=== PATIENT | female | born 1985 | race American Indian/Alaskan Native ===

== ENCOUNTER 2017-11-01 12:24 | Observation (INO) | payer OTHER ==
[~2017-11-01] VITALS: Ht 165.1 cm; Wt 130.0 kg
[~2017-11-01 12:24] MED LIST: ACETAMINOPHEN-1 EAC1 PO; CYCLOBENZAPRINE10 MG PO; CYCLOBENZAPRINE5 MG PO; DAYPRO600 MG PO; IBUPROFEN600 MG PO; IBUPROFEN800 MG PO; LIDODERM700 MG TOP; MEDROL4 M1 PO; MOBIC7.5 MG PO; MOTRIN IB200 MG PO; NAPROXEN500 MG PO; NORCO 5-325 TA1 EACH PO; OMEPRAZOLE20 M1 PO; PERCOCET 5-3251 EACH PO; PRILOSEC20 MG PO; ROBAXIN-750750 MG PO
[2017-11-01] MEDS ORDERED: VITAMIN D1000 UNI1 PO (12:32)
[2017-11-01] MEDS ORDERED: PRENATAL 19 CH1 EAC1 PO (12:32)
--- NOTE | 2017-11-02 13:46 | CONS ---
[facility] [address] [place], [place] [address] Signed DATE OF CONSULTATION: 11/02/2017 HISTORY OF PRESENT ILLNESS: The patient is a 32-year-old 4, para 3, with LMP of 08/05/2017, who presented to the emergency department for back pain. She was apparently at [employer] and walked into the gas station and on her way out of the building, felt as if her legs became jello- like, got weak and could not walk or move, grabbed onto something and slid down to the ground. She was subsequently transported by emergency services to [facility]. The emergency department treated her for pain. She did not have any loss of bowel or bladder control and no numbness, but the pain radiates down both from her lower back to down her legs. She was treated with Toradol, Decadron, and ativan with some relief of pain. Percocet overnight in the hospital apparently relieved her pain, but she was still not able to ambulate. She did use a bed cheney, not very successfully. Reports that she has had less actual urge to void, this is not normal for her and otherwise she continues to have severe lower back pain. PAST MEDICAL HISTORY: Significant for gastroesophageal reflux disease, which is treated with omeprazole. She had chickenpox at age 6. PAST SURGICAL HISTORY: Cholecystectomy in 2010, history of transfusion in 2001, hemorrhage. OB HISTORY: She is a 4, para 3. She has had three term deliveries, 2002 40-week spontaneous vaginal delivery of a male , 7 pounds 8 ounces at [place] with hemorrhage and transfusion. In 06/2008, a 39-week female, spontaneous vaginal delivery, 8 pounds 7 ounces at [facility]. In 02/2011, 40-week male, spontaneous vaginal delivery, 9 pounds 1 ounce at [facility]. SOCIAL HISTORY: She is a former smoker. Denies any alcohol or drug use. ALLERGIES: She is allergic to penicillin, unknown reaction. MEDICATIONS: She is presently on vitamins, omeprazole 20 mg daily, and vitamin D 1000 units daily. FAMILY HISTORY: Electronically Signed By: ARMANI LIMON MD 11/02/17 1346 PATIENT NAME: JACQUI BURCH CONSULTATION DATE OF : 81 REPORT #: [id number] PHYSICIAN: ARMANI LIMON MD PCP: CECILIA STRICKLAND MD REPORT IS CONFIDENTIAL AND NOT TO BE RELEASED WITHOUT AUTHORIZATION [facility] [address] [place], [place] [address] Signed Maternal grandmother, paternal grandmother, and father all have diabetes. Hypertension in mother. Cancer in maternal grandmother, paternal grandmother as well. Genetic history is significant for advanced maternal age. PHYSICAL EXAMINATION: GENERAL: The patient is a morbidly obese female. She appears comfortable in bed. She is able to move about in bed . She is in no acute distress. SKIN: Dry and well-hydrated. HEENT: Pupils are equal, round, and reactive to light. Extraocular muscles are intact. Oral mucosa is moist. She does have poor dentition. NECK: Supple and symmetric. No adenopathy. LUNGS: Clear to auscultation bilaterally. CARDIOVASCULAR: Regular rate and rhythm. No murmur. ABDOMEN: Obese, gravid, soft, nontender, and nondistended. No guarding. BACK: Does not appear to have any CVA tenderness, but right side seems worse than the left over her lumbar area midline going toward the sacrum. MUSCULOSKELETAL: She has good strength and movement. Sensation appears intact. EXTREMITIES: Have no edema. Good pulses. No phlebitis. NEUROLOGIC: She is alert and oriented and moving all extremities well, but she is painful over her lower back. LABORATORY DATA: The patient's white count on admission was 13.1, hemoglobin 13, hematocrit 38.6, and platelets 350. Her band neutrophils were 8%, neutrophils were 83, lymphocytes 8, and monocytes 1. Electrolytes looked to be normal and a glucose of 97. The cath UA was done, did have 2+ squames and some hematuria. Current white count is 14.6, hemoglobin 11.7, hematocrit 33.7, and platelets 332, again with a positive bands. Neutrophils are high at 83. IMAGING: Bedside ultrasound was performed last night, consistent with 10 week intrauterine , live with cardiac activity. IMPRESSION AND PLAN: In the emergency room, the patient was unchanged after a course of Ativan, Toradol, Tylenol, and Decadron. She was placed on Percocet overnight, did well for pain control with that. This morning, we have changed her over to Flexeril for her pain and Percocet for breakthrough and we will have physical therapy involved and see what radiologic studies are further needed to evaluate this sudden onset of acute back pain in a chronic setting. Electronically Signed By: ARMANI LIMON MD 11/02/17 1346 PATIENT NAME: JACQUI BURCH CONSULTATION DATE OF : 81 REPORT #: [id number] PHYSICIAN: ARMANI LIMON MD PCP: CECILIA STRICKLAND MD REPORT IS CONFIDENTIAL AND NOT TO BE RELEASED WITHOUT AUTHORIZATION [place] [id number] [place], [place] [address] Signed MD LIZ Umanzor/ALEENA /[id number] Copies: ~ Electronically Signed By: ARMANI LIMON MD 11/02/17 1346 PATIENT NAME: JACQUI BURCH CONSULTATION DATE OF : 81 REPORT #: [id number] PHYSICIAN: ARMANI LIMON MD PCP: CECILIA STRICKLAND MD REPORT IS CONFIDENTIAL AND NOT TO BE RELEASED WITHOUT AUTHORIZATION
== END 2017-11-02 21:40 | disposition home or self-care (01) ==
LOC: ED 12:24 → FBC 12:25
PROVIDERS: ADMIT Obstetrics & Gynecology
DX: O99.89 Other specified diseases and conditions complicating pregnancy, childbirth and the puerperium (principal); M54.9 Dorsalgia, unspecified; G89.29 Other chronic pain; M54.30 Sciatica, unspecified side; O99.211 Obesity complicating pregnancy, first trimester; E66.01 Morbid (severe) obesity due to excess calories; O99.62 Diseases of the digestive system complicating childbirth; K21.9 Gastro-esophageal reflux disease without esophagitis; Z79.899 Other long term (current) drug therapy; Z87.891 Personal history of nicotine dependence; Z3A.10 10 weeks gestation of pregnancy
CPT/HCPCS: 36415; 51701; 72148; 80048; 80053; 81001; 83690; 84702; 85025; 96372; 97110; 97161; 99285; G0378; G8978; G8979; J1100; J1885

== ENCOUNTER 2017-12-18 21:35 | Emergency (ER) | payer OTHER ==
[~2017-12-18] VITALS: Ht 165.1 cm; Wt 129.3 kg
[~2017-12-18 21:35] MED LIST changes: +PRENATAL 19 CH1 EAC1 PO; +VITAMIN D1000 UNI1 PO
== END 2017-12-18 23:15 | disposition home or self-care (01) ==
LOC: ED 21:35
DX: O9A.212 Injury, poisoning and certain other consequences of external causes complicating pregnancy, second trimester (principal); S50.01XA Contusion of right elbow, initial encounter; Z88.0 Allergy status to penicillin; Z79.899 Other long term (current) drug therapy; Z87.891 Personal history of nicotine dependence; Z3A.18 18 weeks gestation of pregnancy; W10.9XXA Fall (on) (from) unspecified stairs and steps, initial encounter
CPT/HCPCS: 73080; 99283

== ENCOUNTER 2018-01-31 12:40 | Emergency (ER) | payer OTHER ==
[~2018-01-31] VITALS: Ht 165.1 cm; Wt 122.5 kg
[2018-01-31] MEDS ORDERED: PERCOCET 5-3251 EACH PO (13:51)
[2018-01-31] MEDS ORDERED: MACROBID 100 M100 MG PO (14:35)
== END 2018-01-31 14:56 | disposition home or self-care (01) ==
LOC: ED 12:40
DX: O99.89 Other specified diseases and conditions complicating pregnancy, childbirth and the puerperium (principal); M51.16 Intervertebral disc disorders with radiculopathy, lumbar region; M48.061 Spinal stenosis, lumbar region without neurogenic claudication; Z88.0 Allergy status to penicillin; Z79.899 Other long term (current) drug therapy; Z3A.24 24 weeks gestation of pregnancy
CPT/HCPCS: 81001; 96372; 99283; J0696; J1100; J1885

== ENCOUNTER 2018-05-01 14:45 | Emergency (ER) | payer OTHER ==
[~2018-05-01] VITALS: Ht 165.1 cm; Wt 129.3 kg
[~2018-05-01 14:45] MED LIST changes: +MACROBID 100 M100 MG PO
--- OUTSIDE RECORDS SUMMARY | 2018-05-01 14:50 | XMS ---
PreManage Notification: JACQUI BURCH Security Tenter Frame Operator Events No recent Security Events currently on file CRITERIA MET - Group Notification - [facility] - Has Care Guidelines CARE PROVIDERS There are no care providers on record at this time. Guidelines Source: [facility] Guidelines Date: 02/23/2017 Care Coordination: ENCOURAGE PATIENT TO USE PCP FOR FOLLOW UP AND NON-EMERGENT PROBLEMS. GIVE PATIENT OWNER/PHOTOGRAPHERRADIO RECORDER INFORMATION FOR HELP OR QUESTIONS. ANITA PEREZ, STONE GRADERCIGAR [facility] [phone] E.DBubba VISIT COUNT (12 MO.) 5 [facility]. TOTAL 5 NOTE: Visits indicate total known visits. ED/UCC VISIT TRACKING (12 MO.) 05/01/2018 14:46 [facility] [place] TYPE: Emergency COMPLAINT: - SOB,COUGH 01/31/2018 12:41 [facility] TYPE: Emergency COMPLAINT: - BACK PAIN/ NON INJURY DIAGNOSES: - 24 weeks gestation of - SPINAL STENOSIS, LUMBAR REGION WITHOUT NEUROGENIC - Intervertebral disc disorders with radiculopathy, lumbar region - Other specified diseases and conditions complicating , childbirth and the puerperium - Low back pain - Allergy status to penicillin - Spinal stenosis, lumbar region without neurogenic claudication - Other shelter (current) drug therapy 01/20/2018 00:00 [facility] [place] TYPE: Emergency COMPLAINT: - UPPER ABD PAIN,NAUSEA 12/18/2017 21:35 [facility] TYPE: Emergency COMPLAINT: - FALL DIAGNOSES: - Other specified diseases and conditions complicating , childbirth and the puerperium - Contusion of right elbow, initial encounter - Fall (on) (from) unspecified stairs and steps, initial encounter - Other welfare interviewer (current) drug therapy - Injury, poisoning and certain other consequences of external causes complicating , second trimester - Allergy status to penicillin - Personal history of nicotine dependence - 18 weeks gestation of 11/01/2017 12:24 [facility] TYPE: Emergency COMPLAINT: - BACK PAIN/11 WEEKS PREG INPATIENT VISIT TRACKING (12 MO.) No inpatient visits to display in this time frame [email or web address]
[2018-05-01] MEDS ORDERED: VENTOLIN HFA18 GM INH (18:34)
== END 2018-05-01 19:05 | disposition home or self-care (01) ==
LOC: ED 14:45
DX: O99.513 Diseases of the respiratory system complicating pregnancy, third trimester (principal); J40 Bronchitis, not specified as acute or chronic; Z88.0 Allergy status to penicillin; Z79.899 Other long term (current) drug therapy; Z3A.36 36 weeks gestation of pregnancy
CPT/HCPCS: 59025; 71046; 99212; 99283

== ENCOUNTER 2018-05-10 09:10 | Inpatient (IN) | payer OTHER ==
[~2018-05-10] VITALS: Ht 165.1 cm; Wt 134.0 kg
--- NOTE | ~2018-05-10 | OR ---
[facility] [address] [place], [place] [address] Draft DATE OF OPERATION: 05/17/2018 SURGEON: Vidhya Contreras MD MARINE ERECTOR: Win Soto DO. PREOPERATIVE DIAGNOSES: Term , morbid obesity, macrosomia. POSTOPERATIVE DIAGNOSES: Term , morbid obesity, macrosomia, delivered. PROCEDURE: Primary section with low segment transverse uterine incision. ANESTHESIA: Spinal. ESTIMATED BLOOD LOSS: 1000 mL. DRAINS: Fernandes catheter. INDICATIONS AND FINDINGS: The patient is a 33-year-old female admitted at 39 weeks for primary section. She has a history of morbid obesity with excess weight gain. She also has a very large baby. She was counseled and the decision was made to proceed with a primary . At the time of delivery, she was delivered of a little boy from the LOT position via lower segment transverse uterine incision with Apgars of 9 and 9 and weight of 10 pounds 14 ounces. There was a nuchal cord x1, which was loose. The uterus, tubes, ovaries, and placenta appeared normal. DESCRIPTION OF PROCEDURE: The patient was prepped and draped in the supine position. A Pfannenstiel skin incision was made. This was done fairly high because of her pannus as well as intertrigo in the lower aspects of the abdomen. The incision was carried down through the fascia. The incision was extended laterally. The inferior and superior fascial flaps were then created. The muscles were bluntly divided and the peritoneum opened bluntly. The PATIENT NAME: JACQUI BURCH OPERATIVE REPORT DATE OF : 81 REPORT #: [id number] PHYSICIAN: VIDHYA CONTRERAS MD PCP: CECILIA STRICKLAND MD REPORT IS CONFIDENTIAL AND NOT TO BE RELEASED WITHOUT AUTHORIZATION [facility] [address] [place], [place] [address] Draft Thai retractor was then placed. Following this, the uterine wall was then scored and entered at the upper aspect of the peritoneal reflection. The baby was delivered as above findings and handed off to the pediatric staff in attendance. The uterus was explored after removal of the placenta. There was quite a bit of remaining membrane, which required separate removal. The edges of the incision were then identified and the uterus was closed in 2 layers using #0 Monocryl. The first layer was a running locking stitch, the 2nd was a vertical imbricating stitch. Additional [id number] were required near the left side for control of bleeding. The abdomen was then copiously irrigated, inspected, and the area appeared hemostatic. A single suture was placed bringing the bladder flap up over the incision on the patient's left side just because of the difficulty with prior hemostasis. Following this, the retractor was removed and the peritoneum identified. An ACell graft was laid over the lower segment of the uterus to aid in healing. The peritoneum was then closed with a running suture of 3-0 Vicryl. The muscles were brought together with interrupted sutures of 0 Vicryl. Bleeding points were controlled with cautery. ACell powder was sprinkled over the muscles to aid in healing. The fascia was then closed from each angle to the midline with a running suture of 0 Vicryl. The subcutaneous tissue was irrigated and bleeding points controlled with cautery. The deep space was closed with interrupted sutures of 3-0 Vicryl. The skin was closed with linda. All sponge and needle counts were correct. She tolerated the procedure well and was taken to the recovery room in good condition. MD CRYSTAL Ruiz/ALEENA /[id number] cc: [facility] Win Soto DO Copies: [facility] WIN SOTO DO ~ PATIENT NAME: JACQUI BURCH OPERATIVE REPORT DATE OF : 81 REPORT #: [id number] PHYSICIAN: VIDHYA CONTRERAS MD PCP: CECILIA STRICKLAND MD REPORT IS CONFIDENTIAL AND NOT TO BE RELEASED WITHOUT AUTHORIZATION
[~2018-05-10 09:10] MED LIST changes: +VENTOLIN HFA18 GM INH
[2018-05-17] MEDS ORDERED: IRON325 M1 PO (05:56)
--- NOTE | 2018-05-17 09:01 | NUR ---
05/17/18 0901 Vinita Dean 3971 PT REPORTS 6/10 PAIN DURING FUNDAL CHECK. PT RESP EVEN AND UNLABORED ON ROOM AIR. PT REPORTS NAUSEA. ALCOHOL PREP PAD OPEN AND PT SMELLING IT, EMESIS BAG NEXT TO PT. PT ENCOURGED TO DEEP BREATH AND COUGH. 0856 PAIN MEDICATION GIVEN. VSS. BADY TO CHEST.
--- NOTE | 2018-05-18 07:48 | PR ---
[facility] [address] [facility] [place], [place] [address] Signed PP Progress Notes Datetime Report Generated by CPN: 05/18/2018 07:48 SUBJECTIVE: [id number] Pain: Within normal limits Pain Comments: Dizzy when up yesterday but better today Nausea/Vomiting: Denies Vital Signs: [id number] Vital Signs: Reviewed; Within Normal Limits EXAM: [id number] Cardiovascular: Normal Respiratory: Normal Abdomen/Uterus: Abnormal Lochia: Normal Vulva/Perineum: Not Done Breasts: Not Done CVA Tenderness: Not Done Extremities: Normal Incision: Normal Progress: Abnormal Exam Comments: Abdomen with active BS. Fundus firm, NT @ U. H/H 6.8/21.3, WBC 9.9, plat 353k IMPRESSION/PLAN/PROCEDURES: [id number] Impression: Normal progression Other Impression: significant anemia Other Plans: Tx 1 Unit PRBCs, increase ambulation Progress Notes: Doing well overall but significant anemia and some dizziness initially. I do feel she would benefit from a transfusion of 1 Unit at this time. Signing Physician: Vidhya Contreras MD Copies: ~ *Electronically Signed* 05/18/18 0748 VIDHYA CONTRERAS MD PATIENT NAME: JACQUI BURCH PROGRESS NOTE DATE OF : 81 PHYSICIAN: VIDHYA CONTRERAS MD RPT #: [id number] REPORT IS CONFIDENTIAL AND NOT TO BE RELEASED WITHOUT AUTHORIZATION
--- NOTE | 2018-05-19 09:01 | PR ---
[facility] [address] [facility] [place], [place] [address] Signed PP Progress Notes Datetime Report Generated by CPN: 05/19/2018 09:01 SUBJECTIVE: [id number] Pain: Within normal limits Pain Comments: tolerating ambulation Nausea/Vomiting: Denies Flatus: Yes Vital Signs: [id number] Vital Signs: Reviewed; Within Normal Limits EXAM: [id number] Cardiovascular: Not Done Respiratory: Not Done Abdomen/Uterus: Abnormal Lochia: Normal Vulva/Perineum: Not Done Breasts: Not Done CVA Tenderness: Not Done Extremities: Normal Incision: Normal Progress: Abnormal Exam Comments: Abdomen with positive BS. Fundus firm, NT @ U. H/H 7.4/22.9, WBC 10.4, plat 383k (after 1 unit PRBCs) IMPRESSION/PLAN/PROCEDURES: [id number] Impression: Normal progression Other Impression: Anemia Plan: Discharge Other Plans: IV feraheme and then D/C Procedures: Transfusion Other Procedures: IV feraheme Progress Notes: Doing well overall though still quite iron deficient despite her taking po PNV and iron. I feel she would benefit from a dose of IV iron prior to D/C. Signing Physician: Vidhya Contreras MD Copies: ~ *Electronically Signed* 05/19/18 0901 VIDHYA CONTRERAS MD PATIENT NAME: ALYSON LAIRDDARYARoc Morales PROGRESS NOTE DATE OF : 81 PHYSICIAN: VIDHYA CONTRERAS MD RPT #: [id number] REPORT IS CONFIDENTIAL AND NOT TO BE RELEASED WITHOUT AUTHORIZATION
== END 2018-05-19 10:55 | disposition home or self-care (01) | DRG 787 ==
LOC: FBC 05-17 04:49
PROVIDERS: ADMIT Obstetrics & Gynecology
PROC: 10D00Z1 Extraction of Products of Conception, Low, Open Approach (ICD-10-PCS; principal; 2018-05-17 06:45)
DX: O36.63X0 Maternal care for excessive fetal growth, third trimester, not applicable or unspecified (principal); Z68.42 Body mass index [BMI] 45.0-49.9, adult; Z3A.39 39 weeks gestation of pregnancy; Z37.0 Single live birth; O69.81X0 Labor and delivery complicated by cord around neck, without compression, not applicable or unspecified; O99.02 Anemia complicating childbirth; D50.9 Iron deficiency anemia, unspecified; Z88.0 Allergy status to penicillin; O99.214 Obesity complicating childbirth; E66.01 Morbid (severe) obesity due to excess calories; Z87.891 Personal history of nicotine dependence; O32.2XX0 Maternal care for transverse and oblique lie, not applicable or unspecified; O26.03 Excessive weight gain in pregnancy, third trimester; O99.89 Other specified diseases and conditions complicating pregnancy, childbirth and the puerperium; M51.16 Intervertebral disc disorders with radiculopathy, lumbar region; E55.9 Vitamin D deficiency, unspecified
CPT/HCPCS: 01961; 36415; 85027; 86850; 86900; 86901; 86920; C1763; J0690; J1644; J2274; J2405; J2590; J3010; J7120; Q0138

== ENCOUNTER 2019-01-08 13:42 | Emergency (ER) | payer OTHER ==
[~2019-01-08] VITALS: Ht 165.1 cm; Wt 128.4 kg
--- OUTSIDE RECORDS SUMMARY | ~2019-01-08 | XMS | Encounter Summary ---
Demographics + + + | Address | [address] | | | [place] [address] | + + + | Home Phone | | + + + | Preferred Language | Unknown | + + + | Marital Status | Unknown | + + + | Samaritan Affiliation | Unknown | + + + | Race | Unknown | + + + | Ethnic Group | Unknown | + + + Author + + + | Author | [facility] | + + + | Organization | [facility] | + + + | Address | Unknown | + + + | Phone | Unavailable | + + + Support + + +---------+ + | Name | Relationship | Address | Phone | + + +---------+ + | Curtis Jorge | ECON | Unknown | | + + +---------+ + Care Team Providers + +------+ + | Care Batch Records Clerk Name | Role | Phone | + +------+ + | Sharon Valles PA-C | PCP | | + +------+ + Reason for Visit +--------+ + | Reason | Comments | +--------+ + | Other | Chart notes | +--------+ + Encounter Details +--------+ + + + + | Date | Type | Department | Care Team | Description | +--------+ + + + + | 01/04/ | Telephone | [facility] | Eva Lai | Other (Chart notes) | | 2019 | | [facility] | [address] | | | | | [address] | [address] | | | | | [place], [place] | [place] [address] | | | | | [address] | [phone] | | | | | [phone] | | | +--------+ + + + + Social History + +-------+ +--------+------+ | Tobacco Use | Types | Packs/Day | Years | Date | | | | | Used | | + +-------+ +--------+------+ | Current Every Day | | | | | | Smoker | | | | | + +-------+ +--------+------+ + +---+---+---+ | Smokeless Tobacco: | | | | | Never Used | | | | + +---+---+---+ + + +---------+ + | Alcohol Use | Drinks/We | oz/Week | Comments | | | ek | | | + + +---------+ + | No | | | | + + +---------+ + + + + | Sex Assigned at | Date Recorded | | | | + + + | Not on file | | + + + as of this encounter Plan of Treatment +--------+ + + + + | Date | Type | Specialty | Care Team | Description | +--------+ + + + + | 02/01/ | Appointment | [facility] | o[facility] Rdz | | | 2018 | | | MD Ryan [address] | | | | | | [address] | | | | | | [place] [address] | | | | | | [phone] | | | | | | | | +--------+ + + + + | 02/11/ | Office | [facility] | Eva Lai | | | 2019 | Visit | | [address] | | | | | | [address] | | | | | | [place] [address] | | | | | | [phone] | | | | | | | | +--------+ + + + + as of this encounter Visit Diagnoses Not on filein this encounter"
--- OUTSIDE RECORDS SUMMARY | ~2019-01-08 | XMS | Encounter Summary ---
Demographics + + + | Address | [address] | | | [place] [address] | + + + | Home Phone | | + + + | Preferred Language | Unknown | + + + | Marital Status | Unknown | + + + | Episcopalian Affiliation | Unknown | + + + | Race | Unknown | + + + | Ethnic Group | Unknown | + + + Author + + + | Author | [facility] | + + + | Organization | [facility] | + + + | Address | Unknown | + + + | Phone | Unavailable | + + + Support + + +---------+ + | Name | Relationship | Address | Phone | + + +---------+ + | Curtis Jorge | ECON | Unknown | | + + +---------+ + Care Team Providers + +------+ + | Care Folder Machine Name | Role | Phone | + +------+ + | Sharon Valles PA-C | PCP | | + +------+ + Reason for Visit + + + | Reason | Comments | + + + | Procedure | would like a call back | + + + Encounter Details +--------+ + + + + | Date | Type | Department | Care Team | Description | +--------+ + + + + | 01/04/ | Telephone | [facility] | [facility] | Procedure (would | | 2019 | | [facility] | MD [address] | like a call back) | | | | [address] | [address] | | | | | [place], [place] | [place] [address] | | | | | [address] | [phone] | | | | | [phone] | | | +--------+ + + + [...] | 02/01/ | Appointment | [facility] | Moo Rdz | | | 2019 | | | MD [address] | | | | | | [address] | | | | | | [place] [address] | | | | | | [phone] | | | | | | | | +--------+ + + + + | 02/11/ | Office | [facility]ology | Eva Lai | | | 2019 | Visit | | [address] | | | | | | [address] | | | | | | [place] [address] | | | | | | [phone] | | | | | | | | +--------+ + + + + as of this encounter Visit Diagnoses Not on filein this encounter"
--- OUTSIDE RECORDS SUMMARY | ~2019-01-08 | XMS | Encounter Summary ---
Demographics + + + | Address | [address] | | | [place] [address] | + + + | Home Phone | | + + + | Preferred Language | Unknown | + + + | Marital Status | Unknown | + + + | Sikhism Affiliation | Unknown | + + + | Race | Unknown | + + + | Ethnic Group | Unknown | + + + Author + + + | Author | [facility] | + + + | Organization | [facility] | + + + | Address | Unknown | + + + | Phone | Unavailable | + + + Support + + +---------+ + | Name | Relationship | Address | Phone | + + +---------+ + | Curtis Jorge | ECON | Unknown | | + + +---------+ + Care Team Providers + +------+ + | Care Iron Guardrail Installer Name | Role | Phone | + +------+ + | Sharon Valles PA-C | PCP | | + +------+ + Encounter Details +--------+ + + + + | Date | Type | Department | Care Team | Description | +--------+ + + + + | 11/09/ | Documentati | [facility] | Juan Francisco Valera MD | | | 2019 | on Only | [facility] | [address] | | | | | [address] | [place] | | | | | [place] | [address] | | | | | [address] | | | | | | [phone] | | | +--------+ + + + [...] Dol[facility] | Moo Rdz | | | 2018 | | | MD [address] | | | | | | [address] | | | | | | [place] [address] | | | | | | [phone] | | | | | | | | +--------+ + + + + | 02/11/ | Office | Dolorology | Eva Lai | | | 2018 | Visit | | [address] | | | | | | [address] | | | | | | [place] [address] | | | | | | [phone] | | | | | | | | +--------+ + + + + as of this encounter Visit Diagnoses Not on filein this encounter"
--- OUTSIDE RECORDS SUMMARY | ~2019-01-08 | XMS | Encounter Summary ---
Demographics + + + | Address | [address] | | | [place] [address] | + + + | Home Phone | | + + + | Preferred Language | Unknown | + + + | Marital Status | Unknown | + + + | Confucianism Affiliation | Unknown | + + + | Race | Unknown | + + + | Ethnic Group | Unknown | + + + Author + + + | Author | [facility] | + + + | Organization | [facility] [employer] | + + + | Address | Unknown | + + + | Phone | Unavailable | + + + Support + + +---------+ + | Name | Relationship | Address | Phone | + + +---------+ + | Curtis Jorge | ECON | Unknown | | + + +---------+ + Care Team Providers + +------+ + | Care Electrician Deck Name | Role | Phone | + +------+ + | Sharon Valles PA-C | PCP | | + +------+ + Reason for Visit Consultation (Routine) +--------+ + + + + + | Status | Reason | Specialty | Diagnoses / | Referred By | Referred To | | | | | Procedures | Contact | Contact | +--------+ + + + + + | Closed | Specialty | Pain | Diagnoses | Sujatha, | Kendell, | | | Services | Management - | Lumbar | NEIL Gillespie | Moo Davis, | | | Required | Anesthesiolog | radiculopath | [address] | MD [address] | | | | y / | y | Ceci Camacho | Ceci | | | | Dolorology | Degeneration | [address] | | | | | of | [place], [place] | [place] | | | | | intervertebr | [address] | [address] Phone: | | | | | al disc of | Phone: | [phone] | | | | | lumbar | [phone] | Fax: | | | | | region | Fax: | [phone] | | | | | Herniated | [phone] | | | | | | lumbar | | | | | | | intervertebr | | | | | | | al disc | | | +--------+ + + + + + Encounter Details +--------+---------+ + + + | Date | Type | Department | Care Team | Description | +--------+---------+ + + + | 12/27/ | Office | [facility] | Eva Lai | Lumbar radiculitis | | 2019 | Visit | [facility] | NEIL Kevin [address] | (Primary Dx); DDD | | | | [address] | [address] | (degenerative disc | | | | [address] [place], [place] | [place] [address] | disease), lumbar | | | | [address] | [phone] | | | | | [phone] | | | +--------+---------+ + + + Social History + +-------+ [...] + + + as of this encounter Last Filed Vital Signs + + + + | Vital Sign | Reading | Time Taken | + + + + | Blood Pressure | 117/80 | 12/27/2018 10:01 AM PDT | + + + + | Pulse | 85 | 12/27/2018 10:01 AM PDT | + + + + | Temperature | - | - | + + + + | Respiratory Rate | 17 | 12/27/2018 10:01 AM PDT | + + + + | Oxygen Saturation | 95% | 12/27/2018 10:01 AM PDT | + + + + | Inhaled Oxygen | - | - | | Concentration | | | + + + + | Weight | 129.3 kg (285 lb) | 12/27/2018 10:01 AM PDT | + + + + | Height | 165.1 cm (5' 5") | 12/27/2018 10:01 AM PDT | + + + + | Body Mass Index | 47.43 | 12/27/2018 10:01 AM PDT | + + + + in this encounter Instructions Patient Instructions - Eva Lai ARNP - 12/27/2018 10:00 AM PDT-Return to i [facility] for Left L4, L5 TFESI -Return to clinic for follow up post procedure. Thank you, Maximo Alvarez this encounter Progress Notes Eva Lai ARNP - 12/27/2018 10:00 AM PDTFormatting of this note may be differ ent from the original. Subjective: Chief Complaint: Left sided radicular low back pain HPI Patient ID: Natalia Amador is a pleasant 33 y.o. female accompanied by her husba nd and 7-month-old baby presents today for left-sided low back pain that has an insidious on set about 5 years ago. She denies any traumaor injuries. She states that her pain origin ates from her lower spine and radiates, laterally down her thigh and occasionally goes past her knee. She reports that her pain is worse in the morning and that it takes her a few amee martina to get up out of the bed, she has difficulty going from the sitting to the standing posi tion, going upstairs, stepping into the tub shower, bending over and tying her shoes. Leonard deras reports having to use a shopping cart at the grocery store to lean on for support. She h as tried and failed over 6 weeks of NSAID use, Had been prescribed tramadol in the past but did not like how it made her feel And stopped taking it. She has also tried Hot and col d therapy with limited short time relief, and bedrest has not helped. Since her pain began it has increased. She can typically sit for 15-30 minutes, stand fo r 45-60 minutes, and walk for 15-30 minutes. At its worst her pain as a 10 out of 10 , at its least it is a 5 out of 10, I is usually an 8 out of 10, Suddenly it is a 7 ot of 10. Her pain is worse in the morning on arising and in the evening. Her pain is always prese nt and always the same intensity. Scribes her pain as tight and pulling, She has tinglin g pins and needles. Coughing sneezing lying down and physical activity all make her pain wo rse. Thing makes her pain feel better, Her pain interrupts her sleep 3 times per night. she has no history of surgeries or injections for back cheney. Review of Systems Musculoskeletal: Positive for back pain. Social History Social History Marital status: Unknown Spouse name: N/A Number of children: N/A Years of education: N/A Occupational History Not on file. Social History Main Topics Smoking status: Current Every Day Smoker Smokeless tobacco: Never Used Alcohol use No Drug use: Yes Types: Marijuana Sexual activity: Not on file Other Topics Concern Not on file Social History Narrative No narrative on file Past Surgical History Procedure Laterality Date SECTION 05/2018 GALLBLADDER SURGERY 2009 History reviewed. No pertinent past medical history. Patient Active Problem List Diagnosis Lumbar radiculopathy Degeneration of intervertebral disc of lumbar region Herniated lumbar intervertebral disc No current outpatient prescriptions on file. Allergies Allergen Reactions Penicillins Other (See Comments) "unknown" Objective: BP 117/80 (BP Location: Left upper arm, Patient Position: Sitting) | Pulse 85 | Resp 17 | Ht 1.651 m (5' 5") | Wt 129.3 kg (285 lb) | SpO2 95% | BMI 47.43 kg/m Cardiovascular: Normal rate,regular rhythm, and normal heart sounds. Respiratory: Effort normal, breath sounds normal. Physical Exam Musculoskeletal: Back: Lumbar: Axium mechanical lumbar pain upon exam paraspinous tenderness present at L4-L5. Motor Strength Right knee flexion 5/5 Left knee flexion 5-/5 Right knee extension 5/5 Left knee extension 5-/5 Right hip flexion 5/5 Left hip flexion 5-/5 Right hip abduction 5/5 Left hip abduction 5-/5 Right hip adduction 5/5 Left hip adduction 5-/5 Dorsiflexion 5/5 Plantar flexion 5/5 Straight leg positive for low back pain bilaterally Faberes positive on left side for low back pain. Negative on right. Sacroiliac joint tenderness to palpation on the left, negative on the right Greater Trochanteric Bursa negative Station/Gait Upright, non-shuffle, atalgic gait Heel to toe tandem gait with difficulty Walk on toes - unable to perform. Walk on heels -normal Neurologic Exam Sensory: Sensory deficits in the left as compared to the right in the L4-L5 dermatomal dist ributions. . Patellar deep tendon reflexes +2bilaterally, Achiilles absent Ortho Exam IMAGING: No results found. Assessment and Plan: Natalia Amador is a pleasant 33 y.o. female accompanied by her and 7-mon th-old baby presents today for left-sided low back pain that has an insidious onset about 5 years ago. She denies any traumaor injuries. She states that her pain originates from hr mid low back pain and radiates, laterally down he thigh and occasionally goes past her knee . She reports that her pain is worse in the morning and that it takes her a few minutes to g et up out of the bed, she has difficulty going from the sitting to the standing position, go ing upstairs, stepping into the tub shower, bending over and tying her shoes. She report s having to use a shopping cart at the grocery store to lean on for support. She has tried and failed over 6 weeks of NSAID use, Had been prescribed tramadol in the past but did not like how it made her feel And stopped taking it. She has also tried Hot and cold therap y with limited short time relief, and bedrest has not helped. I discusse in detail with the patient using the spine model, her MRI images, and her sympt oms to correlate with the procedures we offer. All of her questions were answered. Plan, alternatives, risks and potential benefits of the procedure were explained to the patient in great detail. The patient understands that there is no guarantee they will get pain relief with this procedure. They also understand that if they do get pain relief that there is no way to know how long it will last. They also understand there is a risk to the procedure i tself which includes but are not limited to infection, abscess, hematoma, nerve damage, inc reased pain, and side effects from the medications themselves. The patient wishes to procee d. The patient has tried and failed than 6 weeks of NSAID use, Hot and cold therapy with mini mal short-term relief, And bedrest. Given her symptoms and her MRI Indicating degenerat ve disc changes at L4-L5, There is a broad-based disc bulge which is concentric to the left which causes mild central canal stenosis alsoeffaces the left side compressing the L5 nerve root In conjunction with her radicular pain radiating on the left lateral thigh The plan is for a left L4 and L5 TFESI. Plan, alternatives, risks and potential benefits of the pro cedure were explained to the patient in great detail. The patient understands that there is no guarantee they will get pain relief with this procedure. They also understand that if t hey do get pain relief that there is no way to know how long it will last. They also unders tand there is a risk to the procedure itself which includes but are not limited to infection , abscess, hematoma, nerve damage, increased pain, and side effects from the medications th emselves. The patient wishes to proceed. The patient will follow-up with me in the clinic after the procedure. The patient was under the impression she would receive a steroid injection today and since that was not the case she asked for a prescription to help alleviate her nerve pain, Wrote her a trial prescription for gabapentin-Patient verbalized that she was not . No diagnosis found. No orders of the defined types were placed in this encounter. No orders of the defined types were placed in this encounter. The following portions of the patient's histories were reviewed and updated as appropriate: Allergies, current medications, past family history, past medical history, past surgical hi story, past surgical history and problem list. These were also stored in the patient's [place] t. NEIL Alvarez has created this entry using [employer] and [employer] macros. The entry has been reviewed and there may still exist sound alike word errors. in this encounter Plan of Treatment +--------+ + + + + | Date | Type | Specialty | Care Team | Description | +--------+ + + + + | 02/01/ | Appointment | Dolorology | Moo Rdz | | | 2018 | | | MD Ryan [address] | | | | | | [address] | | | | | | [place] [address] | | | | | | [phone] | | | | | | | | +--------+ + + + + | 02/11/ | Office | Dolorology | Renny Laielle | | | 2018 | Visit | | NEIL Kevin [address] | | | | | | [address] | | | | | | [place] [address] | | | | | | [phone] | | | | | | | | +--------+ + + + + as of this encounter Visit Diagnoses + + | Diagnosis | + + | Lumbar radiculitis - Primary | + + | Thoracic or lumbosacral neuritis or radiculitis, unspecified | + + | DDD (degenerative disc disease), lumbar | + + | Degeneration of lumbar or lumbosacral intervertebral disc | + +
--- OUTSIDE RECORDS SUMMARY | ~2019-01-08 | XMS | Encounter Summary ---
Demographics + + + | Address | [address] | | | [place] [address] | + + + | Home Phone | | + + + | Preferred Language | Unknown | + + + | Marital Status | Unknown | + + + | Adventism Affiliation | Unknown | + + + | Race | Unknown | + + + | Ethnic Group | Unknown | + + + Author + + + | Author | [facility] [employer] | + + + | Organization | [facility] [employer] [facility] | + + + | Address | Unknown | + + + | Phone | Unavailable | + + + Support + + +---------+ + | Name | Relationship | Address | Phone | + + +---------+ + | Curtis Jorge | ECON | Unknown | | + + +---------+ + Care Team Providers + +------+ + | Care Driver/Guide Name | Role | Phone | + +------+ + | Sharon Valles PA-C | PCP | | + +------+ + Encounter Details +--------+ + + + + | Date | Type | Department | Care Team | Description | +--------+ + + + + | 12/23/ | Documentati | [facility] | Carlie Fall, | | | 2019 | on Only | [facility] | MEAT DEPARTMENT MANAGER | | | | | [address] | | | | | | [place] | | | | | | [address] | | | | | | [phone] | | | +--------+ + + + [...] + + + as of this encounter Progress Notes Carlie Fall CMA - 12/23/2018 2:20 PM [facility] in this enc ounter Plan of Treatment +--------+ + + + + | Date | Type | Specialty | Care Team | Description | +--------+ + + + + | 02/01/ | Appointment | Dolorology | Moo Rdz | | | 2018 | | | MD Ryan [address] | | | | | | [address] | | | | | | [place] [address] | | | | | | [phone] | | | | | | | | +--------+ + + + + | 02/11/ | Office | Dolorology | Eva Lai | | | 2018 | Visit | | NEIL Kevin [address] | | | | | | [address] | | | | | | [place] [address] | | | | | | [phone] | | | | | | | | +--------+ + + + + as of this encounter Visit Diagnoses Not on filein this encounter"
--- OUTSIDE RECORDS SUMMARY | ~2019-01-08 | XMS | Encounter Summary ---
Demographics + + + | Address | [address] | | | [place] [address] | + + + | Home Phone | | + + + | Preferred Language | Unknown | + + + | Marital Status | Unknown | + + + | Mandaeism Affiliation | Unknown | + + + | Race | Unknown | + + + | Ethnic Group | Unknown | + + + Author + + + | Author | [facility] [employer] | + + + | Organization | [facility] [employer] [facility] | + + + | Address | Unknown | + + + | Phone | Unavailable | + + + Support + + +---------+ + | Name | Relationship | Address | Phone | + + +---------+ + | Curtis Jorge | ECON | Unknown | | + + +---------+ + Care Team Providers + +------+ + | Care Continuity Manager Name | Role | Phone | + +------+ + | Sharon Valles PA-C | PCP | | + +------+ + Reason for Visit + + + | Reason | Comments | + + + | Establish Care | Referral | + + + Encounter Details +--------+ + + + + | Date | Type | Department | Care Team | Description | +--------+ + + + + | 10/15/ | Telephone | [facility] | Moo Rdz | Establish Care | | 2019 | | [facility] | MD [address] | (Referral) | | | | [address] | [address] | | | | | [address] [place], [place] | [place] [address] | | | | | [address] | [phone] | | | | | [phone] | | | +--------+ + + + [...] [address] | | | | | | [facility] [place] [place] [address] | | | | | | [phone] | | | | | | | | +--------+ + + + + | 02/11/ | Office | Dolorology | Eva Lai | | | 2019 | Visit | | NEIL [address] | | | | | | [address] | | | | | | [facility] [place] [place] [address] | | | | | | [phone] | | | | | | | | +--------+ + + + + as of this encounter Visit Diagnoses Not on filein this encounter"
--- OUTSIDE RECORDS SUMMARY | ~2019-01-08 | XMS | Clinical Summary ---
Demographics + + + | Address | [address] | | | [place] [address] | + + + | Home Phone | | + + + | Preferred Language | Unknown | + + + | Marital Status | Unknown | + + + | Sikh Affiliation | Unknown | + + + | Race | Unknown | + + + | Ethnic Group | Unknown | + + + Author + + + | Author | [facility] [employer] | + + + | Organization | [facility] [employer] [facility] | + + + | Address | Unknown | + + + | Phone | Unavailable | + + + Support + + +---------+ + | Name | Relationship | Address | Phone | + + +---------+ + | Curtis Jorge | ECON | Unknown | | + + +---------+ + Care Team Providers + +------+ + | Care Billboard Poster Helper Name | Role | Phone | + +------+ + | Sharon Valles PA-C | PP | | + +------+ + Allergies + + + + + + | Active Allergy | Reactions | Severity | Noted | Comments | | | | | Date | | + + + + + + | Penicillins | Other (See Comments) | Medium | 08/20/19 | "unknown" | | | | | 19 | | + + + + + + Current Medications + + +---------+---------+------+------+-------+ | Prescription | Sig. | Disp. | Refills | Star | End | Statu | | | | | | t | Date | s | | | | | | Date | | | + + +---------+---------+------+------+-------+ | gabapentin | TAKE ONE TABLET BY | 90 | 11 | 12/15 | | Activ | | (NEURONTIN) 300 MG | MOUTH AT BEDTIME FOR | capsule | | 3/20 | | e | | capsule | ONE WEEK AND THEN | | | 19 | | | | | INCREASE TO TWO | | | | | | | | TABLETS BY MOUTH AT | | | | | | | | BEDTIME. | | | | | | + + +---------+---------+------+------+-------+ Active Problems + + + | Problem | Noted Date | + + + | Lumbar radiculopathy | 08/20/2018 | + + + | Degeneration of intervertebral disc of lumbar region | 08/20/2018 | + + + | Herniated lumbar intervertebral disc | 08/20/2018 | + + + Encounters +--------+ + + + + | Date | Type | Specialty | Care Team | Description | +--------+ + + + + | 01/04/ | Telephone | | Moo Rdz | Procedure (would | | 2018 | | | MD Ryan | like a call back) | +--------+ + + + + | 01/04/ | Telephone | | Eva Lai | Other (Chart notes) | | 2018 | | | NEIL Kevin | | +--------+ + + + + | 12/27/ | Office | | Eva Lai | Lumbar radiculitis | 2018 | Visit | | NE[address] Kevin | (Primary Dx); DDD | | | | | | (degenerative disc | | | | | | disease), lumbar | +--------+ + + + + | 12/23/ | Documentati | | Carlie Fall, | | | 2018 | on Only | | HELPDESK ADMINISTRATOR | | +--------+ + + + + | 11/09/ | Documentati | | Juan Francisco Valera MD | | | 2018 | on Only | | | | +--------+ + + + + | 10/15/ | Telephone | | Moo Rdz | Establish Care | | 2019 | | | MD Ryan | (Referral) | +--------+ + + + + from Last 3 Months Social History + +-------+ +--------+------+ | Tobacco [...] on file | | + + + Last Filed Vital Signs + + + [...] AM PDT | + + + + Plan of Treatment +--------+ + + + + | Date | Type | Specialty | Care Team | Description | +--------+ + + + + | 02/01/ | Appointment | | Moo Rdz | | | 2018 | | | MD Ryan [address] | | | | | | [address] | | | | | | [place] [address] | | | | | | [phone] | | | | | | | | +--------+ + + + + | 02/11/ | Office | | Eva Lai | | | 2018 | Visit | | [address] | | | | | | [address] | | | | | | [place] [address] | | | | | | [phone] | | | | | | | | +--------+ + + + + + + + + + | Health Maintenance | Due Date | Last Done | Comments | + + + + + | Vaccine: | | | | | Dtap/Tdap/Td (1 - | 2 | | | | Tdap) | | | | + + + + + | Vaccine: | | | | | Pneumococcal 19-64 | 2 | | | | (PPSV23 only) Medium | | | | | Risk (1 of 1 - | | | | | PPSV23) | | | | + + + + + | Cervical Cancer | | | | | Screening (Pap) | 3 | | | + + + + + | Vaccine: Influenza | | | | | (Season Ended) | 9 | | | + + + + + Results Not on filefrom Last 3 Months Insurance + +--------+ +------+-------+---------+ | Payer | Benefi | Subscriber | Type | Phone | Address | | | t Plan | ID | | | | | | / | | | | | | | Group | | | | | + +--------+ +------+-------+---------+ | [employer] | YELLOW | [id number] | | | | | PLANS | [place] | | | | | + +--------+ +------+-------+---------+ + +--------+ +--------+ + + | Guarantor Name | Accoun | Relation to | Date | Phone | Billing Address | | | t Type | Patient | of | | | | | | | | | | + +--------+ +--------+ + + | JACQUI SHIELDS | Person | Self | [birth year] | Home: | [address] | | [place] | al/Rudy | | 1984 | [phone] [address] [place], | | | sami | | | [phone] | [place] [phone] | + +--------+ +--------+ + +
[~2019-01-08 13:42] MED LIST changes: +IRON325 M1 PO; +KEFLEX500 MG PO
--- OUTSIDE RECORDS SUMMARY | 2019-01-08 13:46 | XMS ---
PreManage Notification: JACQUI BURCH Security House Painting Instructor Events No recent Security Events currently on file CRITERIA MET - Group Notification - [facility] - Has Care Guidelines CARE PROVIDERS DEEPTI AGUILAR Physician Director Data Management: Surgical 05/05/2018-Current PHONE: Unknown BLU CERDA Obstetrics \T\ Gynecology 05/05/2018-Current PHONE: Unknown Guidelines Source: [facility] Guidelines Date: 02/23/2017 Care Coordination: ENCOURAGE PATIENT TO USE PCP FOR FOLLOW UP AND NON-EMERGENT PROBLEMS. GIVE PATIENT PRESTRESSED CONCRETE LABORERGUEST HISTORY CLERK INFORMATION FOR HELP OR QUESTIONS. ANITA PEREZ RN GRADES 9 THROUGH 12 TEACHER [facility] [phone] Idania VISIT COUNT (12 MO.) [address] [facility] TOTAL 5 NOTE: Visits indicate total known visits. ED/UCC VISIT TRACKING (12 MO.) 01/08/2019 13:43 [facility] TYPE: Emergency COMPLAINT: - RIGHT ANKLE PAIN 06/03/2018 15:59 [facility] TYPE: Emergency COMPLAINT: - MEDICAL CLEARANCE DIAGNOSES: - Encounter for other general examination - Major depressive disorder, single episode, unspecified - Allergy status to penicillin - Personal history of nicotine dependence - Other group home (current) drug therapy 05/01/2018 14:46 [facility] TYPE: Emergency COMPLAINT: - SOB,COUGH DIAGNOSES: - Allergy status to penicillin - Cough - Bronchitis, not specified as acute or chronic - 36 weeks gestation of - Other group home (current) drug therapy - Diseases of the respiratory system complicating , third trimester 01/31/2018 12:41 [facility] TYPE: Emergency [...] lumbar region without neurogenic claudication - Other as400 consultant (current) drug therapy 01/20/2018 00:00 [facility] TYPE: Emergency COMPLAINT: - UPPER ABD PAIN,NAUSEA INPATIENT VISIT TRACKING (12 MO.) No inpatient visits to display in this time frame [email or web address]
== END 2019-01-08 14:15 | disposition home or self-care (01) ==
LOC: ED 13:42
DX: M25.571 Pain in right ankle and joints of right foot (principal)

== ENCOUNTER 2019-11-08 18:37 | Emergency (ER) | payer OTHER ==
[~2019-11-08] VITALS: Ht 165.1 cm; Wt 128.4 kg
[2019-11-08] MEDS ORDERED: ULTRAM50 MG PO (19:49)
[2019-11-08] MEDS ORDERED: NAPROXEN500 MG PO (19:49)
== END 2019-11-08 20:00 | disposition home or self-care (01) ==
LOC: ED 18:37
DX: M72.2 Plantar fascial fibromatosis (principal); K21.9 Gastro-esophageal reflux disease without esophagitis; Z88.0 Allergy status to penicillin
CPT/HCPCS: 73630; 99283-25

== ENCOUNTER 2020-01-31 15:20 | Emergency (ER) | payer OTHER ==
[~2020-01-31] VITALS: Ht 165.1 cm; Wt 128.4 kg
[~2020-01-31 15:20] MED LIST changes: +ULTRAM50 MG PO
[2020-01-31] MEDS ORDERED: PRILOSEC10 M1 PO (15:34)
== END 2020-01-31 16:45 | disposition home or self-care (01) ==
LOC: ED 15:20
DX: R51 Headache (principal); K21.9 Gastro-esophageal reflux disease without esophagitis; Z20.828 Contact with and (suspected) exposure to other viral communicable diseases; Z87.891 Personal history of nicotine dependence; Z88.0 Allergy status to penicillin; Z79.899 Other long term (current) drug therapy
CPT/HCPCS: 99284; A9270; C9803; U0002

== ENCOUNTER 2020-05-12 10:30 | Emergency (ER) | payer OTHER ==
[~2020-05-12] VITALS: Ht 165.1 cm; Wt 124.7 kg
[~2020-05-12 10:30] MED LIST changes: +PRILOSEC10 M1 PO
--- NOTE | 2020-05-12 12:00 | NUR ---
covid sample collected and sent to [facility], no complications
== END 2020-05-12 11:04 | disposition home or self-care (01) ==
LOC: ED 10:30
DX: J06.9 Acute upper respiratory infection, unspecified (principal); Z20.828 Contact with and (suspected) exposure to other viral communicable diseases; K21.9 Gastro-esophageal reflux disease without esophagitis; Z88.0 Allergy status to penicillin; Z79.899 Other long term (current) drug therapy
CPT/HCPCS: 99283; C9803

== ENCOUNTER 2020-07-04 15:03 | Emergency (ER) | payer OTHER ==
[~2020-07-04] VITALS: Ht 165.1 cm; Wt 122.0 kg
== END 2020-07-04 15:24 | disposition home or self-care (01) ==
LOC: ED 15:03
DX: U07.1 COVID-19 (principal)

== ENCOUNTER 2020-07-08 16:07 | Emergency (ER) | payer OTHER ==
[~2020-07-08] VITALS: Ht 165.1 cm; Wt 122.0 kg
--- NOTE | 2020-07-08 23:59 | EKG ---
[facility] [address] [facility] [place], [place] [address] Signed Normal sinus rhythm Nonspecific T wave abnormality Abnormal ECG No previous ECGs available Confirmed by PADMA BAZAN MD ([id number]) on 07/08/2020 11:59:06 PM Electronically Signed By: PADMA BAZAN MD 07/08/20 2359 PATIENT NAME: DARYA SHIELDSRoc TEJADA Electrocardiogram DATE OF : 81 PHYSICIAN: PADMA BAZAN MD REPORT #: [id number] REPORT IS CONFIDENTIAL AND NOT TO BE RELEASED WITHOUT AUTHORIZATION
== END 2020-07-08 21:01 | disposition home or self-care (01) ==
LOC: ED 16:07
DX: U07.1 COVID-19 (principal); E86.0 Dehydration; K21.9 Gastro-esophageal reflux disease without esophagitis; Z87.891 Personal history of nicotine dependence; Z88.0 Allergy status to penicillin; Z79.899 Other long term (current) drug therapy
CPT/HCPCS: 71045; 80053; 83690; 83735; 84484; 85025; 93005; 93010; 96374; 99284-25; J1885; J7030

== ENCOUNTER 2020-11-10 10:31 | Emergency (ER) | payer OTHER ==
[~2020-11-10] VITALS: Ht 165.1 cm; Wt 129.3 kg
== END 2020-11-10 11:25 | disposition home or self-care (01) ==
LOC: ED 10:31
DX: S60.222A Contusion of left hand, initial encounter (principal); W22.8XXA Striking against or struck by other objects, initial encounter; Z88.0 Allergy status to penicillin
CPT/HCPCS: 73130; 99283-25

== ENCOUNTER 2021-03-02 18:04 | Emergency (ER) | payer OTHER ==
[~2021-03-02] VITALS: Ht 165.1 cm; Wt 129.3 kg
[2021-03-02] MEDS ORDERED: PRILOSEC2.5 MG PO (18:17)
[2021-03-02] MEDS ORDERED: DICLOFENAC SODI75 MG PO (19:16)
== END 2021-03-02 19:35 | disposition home or self-care (01) ==
LOC: ED 18:04
DX: S50.02XA Contusion of left elbow, initial encounter (principal); S90.02XA Contusion of left ankle, initial encounter; S60.212A Contusion of left wrist, initial encounter; V87.8XXA Person injured in other specified noncollision transport accidents involving motor vehicle (traffic), initial encounter; K21.9 Gastro-esophageal reflux disease without esophagitis; Z88.0 Allergy status to penicillin; Z79.899 Other long term (current) drug therapy
CPT/HCPCS: 73080; 73110; 73610; 99283-25

== ENCOUNTER 2022-11-13 09:55 | Emergency (ER) | payer OTHER ==
[~2022-11-13] VITALS: Ht 165.1 cm; Wt 119.8 kg
[~2022-11-13 09:55] MED LIST changes: +DICLOFENAC SODI75 MG PO; +PRILOSEC2.5 MG PO
[2022-11-13] MEDS ORDERED: IBU600 MG PO (12:16)
== END 2022-11-13 12:48 | disposition home or self-care (01) ==
LOC: ED 09:55
DX: S53.401A Unspecified sprain of right elbow, initial encounter (principal); W01.10XA Fall on same level from slipping, tripping and stumbling with subsequent striking against unspecified object, initial encounter; K21.9 Gastro-esophageal reflux disease without esophagitis; Z88.0 Allergy status to penicillin
CPT/HCPCS: 73080; 99283-25; A9270

== ENCOUNTER 2024-08-31 12:14 | Emergency (ER) | payer OTHER ==
[~2024-08-31] VITALS: Ht 165.1 cm; Wt 117.5 kg
[~2024-08-31 12:14] MED LIST changes: +IBU600 MG PO
[2024-08-31 13:35] VITALS: BP 103/60
== END 2024-08-31 13:35 | disposition home or self-care (01) ==
LOC: ED 12:14
DX: S63.501A Unspecified sprain of right wrist, initial encounter (principal); W10.9XXA Fall (on) (from) unspecified stairs and steps, initial encounter; Z88.0 Allergy status to penicillin
CPT/HCPCS: 73110; 99283

== ENCOUNTER 2025-03-19 00:24 | Observation (INO) | payer OTHER ==
[2025-03-19] MEDS ORDERED: NIFEdipine XL 30 MG TAB PO STA (03:14)
[2025-03-19] MEDS ORDERED: LACTATED RINGER'S 1,000 ML IV ONE (03:15)
[2025-03-19] MEDS ORDERED: NIFEdipine XL 30 MG TAB PO ONE (06:15)
[2025-03-19] MEDS ORDERED: LACTATED RINGER'S 1,000 ML IV SCH (06:15)
[2025-03-19 06:33] VITALS: BP 98/52
--- NOTE | 2025-03-19 13:18 | PR ---
[facility] [address] [facility] [place], [place] [address] Signed AP Progress Notes Datetime Report Generated by CPN: 03/19/2025 13:18 Chief Complaint: Fall EGA: 29.4 PHYSICAL EXAM: [id number] General: Normal HEENT: Normal Neurologic: Normal Thyroid: Normal Cardiovascular: Normal Respiratory: Not Done Breast: Not Done Back: Normal Abdomen: Normal Genitourinary Exam: Not Done Extremities: Normal DTRs: Not Done Impression: IUP @ 29w4d Fall w/ contractions Plan: Pt seen and evaluated. Doing well. No bleeding or loss of fluids. CTXs much less intense. No concerns. Discussed risk of abruption and indication for 24 hr observation. Pt agreeable. Will reevaluate this evening; sooner if needed. VITAL SIGNS: [id number] Vital Signs: Reviewed; Within Normal Limits EXAM: [id number] Dilatation: 0.5 Effacement: 50 Station: -3 MEMBRANES: [id number] FETUS A: [id number] FHR Baseline: 135 Variability: Moderate 6-25bpm Accelerations: 15X15 Deceleration: None FHR Category: Category I Gestation by US: 29.4 FETUS B: [id number] PROGRESS NOTES: [id number] Signing Physician: Win Soto DO *Electronically Signed* 03/19/25 1318 WIN SOTO (NOVA) DO PATIENT NAME: JACQUI SHIELDS PROGRESS NOTE DATE OF : 81 PHYSICIAN: WIN SOTO (JD) DO RPT #: [id number] REPORT IS CONFIDENTIAL AND NOT TO BE RELEASED WITHOUT AUTHORIZATION [facility] [address] [place], [place] [address] Signed Copies: ~ *Electronically Signed* 03/19/25 1318 WIN SOTO) DO PATIENT NAME: JACQUI SHIELDS PROGRESS NOTE DATE OF : 81 PHYSICIAN: WIN SOTO) DO RPT #: [id number] REPORT IS CONFIDENTIAL AND NOT TO BE RELEASED WITHOUT AUTHORIZATION
--- NOTE | 2025-03-19 23:21 | PR ---
[facility] [address] [place], [place] [address] Signed AP Progress Notes Datetime Report Generated by CPN: 03/19/2025 23:21 Chief Complaint: Fall EGA: 29.4 PHYSICAL EXAM: [id number] General: Normal HEENT: Normal Neurologic: Normal Thyroid: Normal Cardiovascular: Normal Respiratory: Not Done Breast: Not Done Back: Normal Abdomen: Normal Genitourinary Exam: Not Done Extremities: Normal DTRs: Not Done Physical Exam Comments: Abdomen gravid, soft, non-tender Impression: IUP @ 29w4d Fall w/ contractions No evidence of abruption or labor Plan: Doing well. No concerns. Denies painful contractions. Reviewed d/c instructions and indications for return. F/U for regularly scheduled OB visit. Call if any other episodes of fainting. All questions answered. VITAL SIGNS: [id number] Vital Signs: Reviewed; Within Normal Limits EXAM: [id number] Dilatation: 0.5 Effacement: 50 Station: -3 MEMBRANES: [id number] FETUS A: [id number] FHR Baseline: 135 Variability: Moderate 6-25bpm Accelerations: 15X15 Deceleration: None FHR Category: Category I Gestation by US: 29.4 FETUS B: [id number] *Electronically Signed* 03/19/25 Tom1 WIN SOTO) DO PATIENT NAME: JAQCUI SHIELDS PROGRESS NOTE DATE OF : 81 PHYSICIAN: WIN SOTO (JD) DO RPT #: [id number] REPORT IS CONFIDENTIAL AND NOT TO BE RELEASED WITHOUT AUTHORIZATION [facility] [address] [place], [place] [address] Signed PROGRESS NOTES: [id number] Signing Physician: Win Soto DO Copies: ~ *Electronically Signed* 03/19/25 2321 WIN SOTO) DO PATIENT NAME: JACQUI SHIELDS PROGRESS NOTE DATE OF : 81 PHYSICIAN: WIN SOTO (JD) DO RPT #: [id number] REPORT IS CONFIDENTIAL AND NOT TO BE RELEASED WITHOUT AUTHORIZATION
== END 2025-03-20 00:38 | disposition home or self-care (01) ==
LOC: FBCO 00:24 → FBC 06:09
PROVIDERS: ADMIT Obstetrics & Gynecology; ATTEND Obstetrics & Gynecology
DX: O99.891 Other specified diseases and conditions complicating pregnancy (principal); R55 Syncope and collapse; O47.03 False labor before 37 completed weeks of gestation, third trimester; Z3A.29 29 weeks gestation of pregnancy; Z88.0 Allergy status to penicillin; W18.30XA Fall on same level, unspecified, initial encounter
CPT/HCPCS: G0378; J7121

== ENCOUNTER 2025-05-20 03:55 | Inpatient (IN) | payer OTHER ==
[~2025-05-20] VITALS: Ht 167.1 cm; Wt 120.7 kg
--- NOTE | ~2025-05-20 | OR ---
[facility] [address] [facility] [place] [address] Draft DATE OF OPERATION: 05/20/2025 SURGEON: Win Soto DO PREOPERATIVE DIAGNOSES: 1. Term . 2. History of prior section. 3. Obesity. 4. Anemia. 5. Desires bilateral salpingectomy. POSTOPERATIVE DIAGNOSES: 1. Term . 2. History of prior section. 3. Obesity. 4. Anemia. 5. Desires bilateral salpingectomy. PROCEDURE PERFORMED: 1. Repeat low transverse section. 2. Bilateral salpingectomy. STAMP MOUNTER: POLICE CRIME SCENE TECHNICIAN. ANESTHESIA: Spinal with postoperative TAP block. QUANTITATIVE BLOOD LOSS: 771 mL. DRAINS: Fernandes to gravity. SPECIMENS: Bilateral fallopian tubes and cord blood. COMPLICATIONS: None. PATIENT NAME: JACQUI SHIELDS OPERATIVE REPORT DATE OF : 81 REPORT #: [id number] PHYSICIAN: WIN SOTO (NOVA) PCP: [facility] REPORT IS CONFIDENTIAL AND NOT TO BE RELEASED WITHOUT AUTHORIZATION [address], [place] [address] Draft FINDINGS: Delivery of viable male , 9 pounds, 5 ounces with Apgars of 8 and 9, born in the FELICE position via low transverse uterine incision. Clear fluid and no nuchal cord noted. There were some filmy adhesions of the omentum to the uterus. Otherwise, normal uterus, tubes, and ovaries. INDICATIONS: Ms. Shields is a very pleasant 40-year-old multiparous female, who presented after spontaneous rupture of membranes. was complicated by history of prior , obesity, anemia, and the patient desirous of bilateral salpingectomy. Risks, benefits, and alternatives were discussed in detail with the patient. State forms and ethics committee approval for salpingectomy had been previously completed. The patient understands and wished to proceed with the procedure. DESCRIPTION OF PROCEDURE: The patient was taken to the OR. Time-out was performed to confirm correct patient and correct procedure. Spinal anesthesia was adequately established. The patient was prepped and draped in the supine position with a bump under her right hip. She received Ancef 3 g and azithromycin 500 mg IV preoperatively. Once spinal anesthetic was noted to be adequately established, a Pfannenstiel skin incision was made through the prior incision and carried down to the fascia. The fascia was nicked in the midline and fascial incision was extended bilaterally using curved Macias scissors. Fascia was grasped with Maurilio's, elevated, and the underlying rectus dissected off bluntly and sharply. The rectus was divided in the midline and the peritoneum was entered bluntly. Peritoneal incision was extended cephalad and caudad using sharp and blunt dissection. Very filmy adhesions of the omentum were noted to the anterior uterine wall and these were easily taken down with the Bovie electrocautery. The lower uterine segment was identified and noted to be normal in appearance. Thai self-retractor was placed and hysterotomy was performed using a surgical scalpel. The hysterotomy was extended bilaterally using blunt dissection and the amnion was ruptured for clear fluid. The surgeon's hand was placed in the uterine cavity. The vertex delivered into the abdomen in the FELICE position without difficulty and the remainder of the was delivered with the assistance of fundal pressure. was vigorous and cried. Delayed cord clamping was observed, at which time the cord was doubly clamped and cut and handed to the waiting pediatric team for further care. The cord blood was obtained for routine analysis. The placenta was expressed intact with a centrally inserted three-vessel cord. The uterine cavity was cleared of any remaining products of conception or clot, and the uterus was then closed in two layers of 0 Monocryl; the first being a running locked layer and the second being a running imbricating layer in the vertical manner. Small amount of oozing was noted and the patient was given 1 g of tranexamic acid and oozing was made hemostatic with a ahyrpn-xx-wwown of Monocryl. Cindy was applied to the segment with excellent hemostasis while PATIENT NAME: JACQUI SHIELDS OPERATIVE REPORT DATE OF : 81 REPORT #: [id number] PHYSICIAN: WIN SOTONOVAAleksander EDMONDS PCP: [facility] REPORT IS CONFIDENTIAL AND NOT TO BE RELEASED WITHOUT AUTHORIZATION [facility] [address] [place] [id number] Draft attention was turned to bilateral salpingectomy. The right fallopian tube was grasped with Denita, followed out to the fimbriated end and divided along the mesosalpinx using the LigaSure device. The tube was then amputated at the cornua with excellent hemostasis appreciated. The process was repeated on the left side without difficulty. The tubes were sent to pathology for further evaluation. Dissection along the mesosalpinx was reexamined and found to be hemostatic. Attention was turned back to the lower uterine segment and continued hemostasis was appreciated. Thai self retractor was removed and peritoneum was reapproximated using 2-0 Vicryl in a running nonlocked manner. Rectus was plicated loosely in the midline with three interrupted sutures of 0 Vicryl. Cindy was applied to the rectus sheath after confirming hemostasis of the rectus. Fascia was reapproximated using 0 Vicryl in a running nonlocked manner. Subcu was irrigated, made hemostatic with judicious use of Bovie electrocautery. Subcu was then reapproximated using 3-0 Vicryl in a running nonlocked manner. Skin was reapproximated using surgical linda. The uterus was for a scant amount of blood and the patient remained in the PACU for postoperative TAP blocks. Sponge, needle, instrument counts were correct x2 at the end of the procedure. DO SHRUTHI Hollingsworth/ALEENA /[id number] Copies: ~ PATIENT NAME: JACQUI SHIELDS OPERATIVE REPORT DATE OF : 81 REPORT #: [id number] PHYSICIAN: WIN SOTO DO (JD) PCP: [facility] REPORT IS CONFIDENTIAL AND NOT TO BE RELEASED WITHOUT AUTHORIZATION
--- OUTSIDE RECORDS SUMMARY | ~2025-05-20 | XMS | Continuity of Care Document ---
Demographics + + + | Address | [address] [place] [address] | | | [place] [address] | + + + | Preferred Language | Unknown | + + + | Marital Status | | + + + | Adventist Affiliation | Unknown | + + + | Race | or | + + + | Ethnic Group | Not or | + + + Author + + + | Author | [facility] | + + + | Organization | [facility] | + + + | Address | [address] [facility] [address] | | | [place] [address] | + + + | Phone | | + + + Care Team Providers + + + + | Care Domestic Laundry Worker Name | Role | Phone | + + + + Unavailable | Unavailable | + + + + Unavailable | Unavailable | + + + + Allergies No information. Encounters No information. Functional Status No information. Immunizations No information. Medications + + + + | date | description | facility | + + + + | (no date) | IBUPROFEN | [facility] | | | | [facility] | + + + + | (no date) | CHOLECALCIFEROL (VITAMIN | [facility] | | | D3) | [facility] | + + + + | (no date) | OMEPRAZOLE | [facility] | | | | [facility] | + + + + | (no date) | CEPHALEXIN | [facility] | | | | [facility] | + + + + | (no date) | FERROUS SULFATE | [facility] | | | | [facility] | + + + + | (no date) | OMEPRAZOLE | [facility] | | | | [facility] | + + + + | (no date) | OMEPRAZOLE MAGNESIUM | [facility] | | | | [facility] | + + + + Problems No information. Procedures No information. Results/Labs No information. Social History +--------+ + + | date | description | facility | +--------+ + + Vital Signs + + +---------+---------+ | date | measurement | value | units | + + +---------+---------+ | 2025-03-19 00:00 | BP_diastolic | 52 | mmHg | + + +---------+---------+ | 2025-03-19 00:00 | BP_systolic | 98 | mmHg | + + +---------+---------+ | 2025-03-19 00:00 | heart_rate | 64 | /min | + + +---------+---------+ | 2025-03-19 00:00 | respiration_rate | 18 | /min | + + +---------+---------+"
[2025-05-20] MEDS ORDERED: AZITHROMYCIN 500 MG VIAL ONE (04:08)
[2025-05-20] MEDS ORDERED: DEXTROSE 5% 250 ML IV ONE (04:10)
[2025-05-20] MEDS ORDERED: LACTATED RINGER'S 1,000 ML IV PRN (04:15)
[2025-05-20] MEDS ORDERED: AZITHROMYCIN 500 MG in DEXTROSE 5% 250 ML IV ONE (04:15)
[2025-05-20] MEDS ORDERED: SOD+POT BICARB/CITRIC ACID 2 EA TABLET.EFF PO ONE (04:15)
[2025-05-20 04:24] LABS: MCH 26.4 PG (25.6-32.2); MCHC 31.9 g/dL (32.2-35.5); MCV 82.6 fL (79.4-94.8); RBC 3.45 M/uL (3.93-5.22)
[2025-05-20] MEDS ORDERED: fentaNYL citrate 100 MCG/2 ML VIAL ONE (04:28)
[2025-05-20] MEDS ORDERED: OXYTOCIN 10 UNITS/ML VIAL ONE ×3 (04:28→06:20)
[2025-05-20] MEDS ORDERED: BUPIVACAINE 0.75% IN DEXTROSE 2 ML AMP ONE (04:28)
[2025-05-20] MEDS ORDERED: LIDOCAINE HCL 2% 5 ML SDV ONE (04:28)
[2025-05-20] MEDS ORDERED: MORPHINE SULFATE 1 MG/ML VIAL ONE (04:28)
[2025-05-20 04:40] LABS: AMPHETAMINES, URINE NEGATIVE (NEGATIVE); BARBITURATES, URINE NEGATIVE (NEGATIVE); BENZODIAZEPINE, URINE NEGATIVE (NEGATIVE); CANNABINOID, URINE POSITIVE (NEGATIVE); COCAINE, URINE NEGATIVE (NEGATIVE); ECSTASY, URINE NEGATIVE (NEGATIVE); FENTANYL, URINE NEGATIVE (NEGATIVE); METHADONE, URINE NEGATIVE (NEGATIVE); OPIATES, URINE NEGATIVE (NEGATIVE); OXYCODONE, URINE NEGATIVE (NEGATIVE); PHENCYCLIDINE, URINE NEGATIVE (NEGATIVE)
[2025-05-20 04:46] VITALS: BP 125/78
[2025-05-20] MEDS ORDERED: TRANEXAMIC ACID IN NACL,ISO-OS 100 ML IV ONE (04:54)
[2025-05-20 05:00] LABS: ABO O; ANTIBODY SCREEN NEGATIVE; RH POSITIVE
[2025-05-20] MEDS ORDERED: PROCHLORPERAZINE EDISYLATE 10 MG/2 ML VIAL IV PRN ×2 (05:00→06:45)
[2025-05-20] MEDS ORDERED: HYDROmorphone HCL 1 MG/ML SYR IV PRN (05:00)
[2025-05-20] MEDS ORDERED: NALOXONE HCL 0.4 MG SYR IV PRN (05:00)
[2025-05-20] MEDS ORDERED: LACTATED RINGER'S 1,000 ML IV ONE (05:09)
[2025-05-20] MEDS ORDERED: DEXAMETHASONE SOD PHOS 4 MG/ML VIAL ONE (05:56)
[2025-05-20] MEDS ORDERED: Ropivacaine HCl 0.5% 30 ML VIAL ONE (05:56)
[2025-05-20] MEDS ORDERED: SODIUM CHLORIDE 0.9% 20 ML IV ONE (05:56)
[2025-05-20] MEDS ORDERED: LACTATED RINGER'S 1,000 ML IV SCH (06:40)
[2025-05-20] MEDS ORDERED: OXYTOCIN/0.9 % SODIUM CHLORIDE 500 ML IV SCH (06:45)
[2025-05-20] MEDS ORDERED: OXYCODONE/APAP 5/325 TAB PO PRN (06:45)
[2025-05-20] MEDS ORDERED: PROMETHAZINE HCL 25 MG TAB PO PRN (06:45)
[2025-05-20] MEDS ORDERED: PROMETHAZINE HCL 25 MG SUPP PR PRN (06:45)
[2025-05-20] MEDS ORDERED: OXYCODONE HCL 5 MG TAB PO PRN (06:45)
[2025-05-20] MEDS ORDERED: METOCLOPRAMIDE HCL 10 MG/2 ML SDV IV PRN (06:45)
[2025-05-20] MEDS ORDERED: HYDROCODONE/ACETA 5/325 TAB PO PRN (06:45)
[2025-05-20] MEDS ORDERED: SIMETHICONE 80 MG CHEW PO SCH (07:00)
[2025-05-20] MEDS ORDERED: CEFAZOLIN SODIUM 3 GM in SODIUM CHLORIDE 0.9% 100 ML IV SCH (07:00)
[2025-05-20 07:13] VITALS: BP 109/65
[2025-05-20] MEDS ORDERED: FERROUS SULFATE 325 MG TAB PO SCH (08:00)
[2025-05-20] MEDS ORDERED: KETOROLAC TROMETHAMINE 30 MG/ML VIAL IV SCH (08:00)
[2025-05-20] MEDS ORDERED: NYSTATIN CREAM 30 GM TUBE TOP SCH (09:00)
[2025-05-20] MEDS ORDERED: SENNOSIDES/DOCUSATE 1 EA TAB PO SCH (09:00)
[2025-05-20 12:50] LABS: MCH 26.2 PG (25.6-32.2); MCHC 31.6 g/dL (32.2-35.5); MCV 82.7 fL (79.4-94.8); RBC 3.59 M/uL (3.93-5.22)
[2025-05-20] MEDS ORDERED: ENOXAPARIN SODIUM 40 MG/0.4 ML SYR SUB-Q SCH (16:00)
[2025-05-21] MEDS ORDERED: LACTATED RINGER'S 1,000 ML IV SCH (05:00)
[2025-05-21 05:06] LABS: MCH 26.4 PG (25.6-32.2); MCHC 31.4 g/dL (32.2-35.5); MCV 83.9 fL (79.4-94.8); RBC 2.92 M/uL (3.93-5.22)
[2025-05-21] MEDS ORDERED: IBUPROFEN 600 MG TAB PO SCH (08:00)
--- NOTE | 2025-05-21 09:10 | PR ---
[facility] [address] [place], [place] [address] Signed PP Progress Notes Datetime Report Generated by CPN: 05/21/2025 09:10 SUBJECTIVE: [id number] Pain: Within Normal Limits Nausea/Vomiting: Denies Flatus: Yes Bowel Movement: No Vital Signs: [id number] Vital Signs: Reviewed; Within Normal Limits EXAM: Ongoing EXAM: Ongoing Cardiovascular: Normal Respiratory: Normal Abdomen/Uterus: Normal Lochia: Normal Vulva/Perineum: Not Done Breasts: Not Done CVA Tenderness: Normal Extremities: Normal Incision: Normal Progress: Not Applicable Exam Comments: Fundus firm U-2 nontender. Previously noted rash much improved w/ nystatin. Incision healing well IMPRESSION/PLAN/PROCEDURES: [id number] Impression: Normal Progression Plan: Continue Present Management Progress Notes: Pt seen and examined. Doing very well. Ambulating, voiding, and tolerating full diet. Pain and lochia minimal. Bottlefeeding. Previous noted rash improved significantly w/ nystatin and incision healing well. No concerns. Anticpiate d/c home tomorrow. Reviewed pp depression screening w/ RN; pt misunderstood one question and after explanation from RN screening normal. Pt denies s/sx pp depression Signing Physician: Win Soto DO Copies: ~ *Electronically Signed* 05/21/25 0974 WIN OSTO (NOVA) DO PATIENT NAME: JACQUI SHIELDS PROGRESS NOTE DATE OF : 81 PHYSICIAN: WIN SOTO (JD) DO RPT #: [id number] REPORT IS CONFIDENTIAL AND NOT TO BE RELEASED WITHOUT AUTHORIZATION
--- NOTE | 2025-05-22 09:04 | PR ---
[facility] [address] [place], [place] [address] Signed PP Progress Notes Datetime Report Generated by CPN: 05/22/2025 09:03 Pain: Within Normal Limits Nausea/Vomiting: Denies Flatus: Yes Bowel Movement: No Vital Signs: Reviewed; Within Normal Limits Cardiovascular: Normal Respiratory: Normal Abdomen/Uterus: Normal Lochia: Normal Vulva/Perineum: Not Done Breasts: Not Done CVA Tenderness: Normal Extremities: Normal Incision: Normal Progress: Not Applicable Exam Comments: Fundus firm U-2 nontender. Incision healing well w/ linda in place. Rash continues to improve. Impression: Normal Progression Plan: Discharge Progress Notes: Pt seen and examined. Doing well. Ambulating, voiding, and tolerating full diet. Pain and lochia minimal. well. No fevers/chills or other concerns. Rash improved w/ nystatin. No lightheadedness or dizziness. Desires d/c home today. Reviewed d/c medications / instructions. All quesitons answered. S/P bilateral salpingectomy for pp contraception. Will f/u in office 2-3 days for staple removal and 2 wks at [facility] for care Signing Physician: Win Soto DO Copies: ~ *Electronically Signed* 05/22/25 09 WIN SOTO (NOVA) DO PATIENT NAME: JACQUI SHIELDS PROGRESS NOTE DATE OF : 81 PHYSICIAN: WIN SOTO (JD) DO RPT #: [id number] REPORT IS CONFIDENTIAL AND NOT TO BE RELEASED WITHOUT AUTHORIZATION
--- NOTE | 2025-05-24 12:04 | PATH ---
[facility] [address] [place], [place] [address] Signed SPECIMEN(S): A PORTIONS OF RIGHT AND LEFT TUBES SPECIMEN SOURCE: A. PORTIONS OF RIGHT AND LEFT TUBES CLINICAL HISTORY: Repeat , B salpingectomy FINAL PATHOLOGIC DIAGNOSIS: right and left fallopian tubes, bilateral salpingectomy: - Histologically unremarkable fimbria and fallopian tubes with full lumen identified. - Benign paratubal cyst. NA MICROSCOPIC EXAMINATION: Histologic sections of all submitted blocks are examined by light microscopy. These findings, together with the gross examination, support the pathologic diagnosis. GROSS DESCRIPTION: The specimen, labeled and designated "Shields, portions of right and left fallopian tubes," is received in formalin and consists of two red-brown fimbriated fallopian tube segments (10.4 cm in length and ranging in diameter from 0.4 to 1.5 cm, and 8.0 cm in length and ranging in diameter from 0.6 to 1.5 cm). Both segments contain paratubal cysts (1.2-1.4 cm in greatest dimension). One of the segments is arbitrarily inked blue. Both segments are serially sectioned to reveal red-brown soft cut surfaces. The paratubal cysts are sectioned to reveal a clear choi viscous material. Media Coordinator sections including the fimbriae entirely are submitted in cassette (A1-A2). VB (under the direct supervision of a pathologist) The Gross Description was prepared using a voice recognition system. The report was reviewed for accuracy; however, sound-alike word errors, addition and/or deletions may occur. If there is any question about this report, please contact Client Services. ADDITIONAL NOTES: Immunohistochemical and/or in situ hybridization studies if performed in this PATIENT NAME: JACQUI SHIELDS PATHOLOGY DATE OF : 81 REPORT #: [id number] PHYSICIAN: PERRY MONCADA PCP: [facility] REPORT IS CONFIDENTIAL AND NOT TO BE RELEASED WITHOUT AUTHORIZATION [facility] [address] [place], [place] [address] Signed case included appropriate positive controls that reacted as expected. This test was developed and its performance characteristics determined by [facility]. It has not been cleared or approved by the U.S. Food and Drug Administration. The FDA has determined that such clearance or approval is not necessary. This test is used for clinical purposes. It should not be regarded as investigational or for research. [facility] is certified under the Clinical Laboratory Improvement Amendments of 1988 (CLIA) as qualified to perform high complexity clinical laboratory testing. PERFORMING LABORATORY: Technical component was performed by [facility], [address] [place] [address] (CLIA# [id number]). Professional interpretation was performed by [facility] - [facility], [address] [place] [address] (CLIA#: [id number]). Diagnostician: Bertrand Morales MD Pathologist Electronically Signed 05/24/2025 Copies: ~ PATIENT NAME: JACQUI SHIELDS PATHOLOGY DATE OF : 81 REPORT #: [id number] PHYSICIAN: PERRY MONCADA PCP: [facility] REPORT IS CONFIDENTIAL AND NOT TO BE RELEASED WITHOUT AUTHORIZATION
== END 2025-05-22 09:15 | disposition home or self-care (01) | DRG 785 ==
LOC: FBCO 03:55 → FBC 03:58
PROVIDERS: ADMIT Obstetrics & Gynecology; ATTEND Obstetrics & Gynecology
PROC: 0UB70ZZ Excision of Bilateral Fallopian Tubes, Open Approach (ICD-10-PCS; principal; 2025-05-20 05:00)
PROC: 10D00Z1 Extraction of Products of Conception, Low, Open Approach (ICD-10-PCS; principal; 2025-05-20 05:00)
PROC: 3E03329 Introduction of Other Anti-infective into Peripheral Vein, Percutaneous Approach (ICD-10-PCS; principal; 2025-05-20 05:00)
DX: O34.211 Maternal care for low transverse scar from previous cesarean delivery (principal); O99.214 Obesity complicating childbirth; Z3A.38 38 weeks gestation of pregnancy; Z37.0 Single live birth; O99.02 Anemia complicating childbirth; D64.9 Anemia, unspecified; E55.9 Vitamin D deficiency, unspecified; O26.893 Other specified pregnancy related conditions, third trimester; O99.824 Streptococcus B carrier state complicating childbirth; Z79.899 Other long term (current) drug therapy; Z79.82 Long term (current) use of aspirin; Z30.2 Encounter for sterilization
CPT/HCPCS: 01961; 36415; 76942; 80307; 85027; 86850; 86900; 86901; A9270; J0456; J0688; J1100; J1650; J1885; J2003; J2274; J2405; J2590; J2795; J3010; J7060; J7121